=== PATIENT | female | born 1950 | race Hispanic/Latino ===

== ENCOUNTER → 2019-05-26 | Outpatient (CLI) | payer OTHER | END | disposition home or self-care (01) | LOC: RAH 12:36 | PROVIDERS: ATTEND Physical Medicine & Rehabilitation | DX: M47.26 Other spondylosis with radiculopathy, lumbar region (principal); M89.38 Hypertrophy of bone, other site; M25.78 Osteophyte, vertebrae | CPT/HCPCS: 72114 ==

== ENCOUNTER → 2019-06-18 | Outpatient (CLI) | payer OTHER | END | disposition home or self-care (01) | LOC: RAH 10:29 | PROVIDERS: ATTEND Physical Medicine & Rehabilitation | DX: M51.17 Intervertebral disc disorders with radiculopathy, lumbosacral region (principal); M48.061 Spinal stenosis, lumbar region without neurogenic claudication; M51.16 Intervertebral disc disorders with radiculopathy, lumbar region | CPT/HCPCS: 72148 ==

== ENCOUNTER → 2025-02-03 | Outpatient (CLI) | payer MEDICARE ==
--- NOTE | 2025-02-04 03:46 | HMCIMG ---
EXAM: CR Lumbar Spine, 4 views. CLINICAL HISTORY: Pain. COMPARISON: None provided. FINDINGS: Lumbar alignment is within normal limits. No spondylolisthesis on flexion and extension. Mild osteopenia. Moderate spondylosis and mild degenerative disc space narrowing at multiple levels. Normal vertebral body heights. No acute fracture. Atherosclerotic vascular calcifications. IMPRESSION: Lumbar alignment is within normal limits. No spondylolisthesis on flexion and extension. Mild osteopenia. Moderate spondylosis and mild degenerative disc space narrowing at multiple levels. /[place]
== END | disposition home or self-care (01) ==
LOC: RAH 10:26
PROVIDERS: ATTEND Physician Assistant
DX: M47.26 Other spondylosis with radiculopathy, lumbar region (principal); M48.061 Spinal stenosis, lumbar region without neurogenic claudication; M54.51 Vertebrogenic low back pain; M85.88 Other specified disorders of bone density and structure, other site; M99.05 Segmental and somatic dysfunction of pelvic region; I70.90 Unspecified atherosclerosis
CPT/HCPCS: 72114

== ENCOUNTER → 2025-04-15 | Outpatient (CLI) | payer MEDICARE ==
--- NOTE | 2025-04-16 22:37 | HMCIMG ---
EXAM: MR Lumbar Spine Without Intravenous Contrast. CLINICAL HISTORY: Radiculopathy. TECHNIQUE: Magnetic resonance images of the lumbar spine in multiple planes. CONTRAST: None. COMPARISON: MRI dated 06/18/19. FINDINGS: For this examination, spinal levels were labeled assuming five [id number], lumbar-type vertebrae, with the inferior labeled L5. No acute fracture. Normal lordotic curvature. Multilevel spondylosis is evident by marginal osteophytes and facet joint arthropathy. Multilevel disc desiccation noted. Mild degenerative disc height reduction at the L5-S1 level. Normal vertebral body and remaining disc heights. Modic type I changes in the contiguous endplates at the L5-S1 level. Conus medullaris terminates at the L1 level. No abnormal epidural masses. The surrounding soft tissues are unremarkable. Individual spinal levels are described as follows: T12-L1: No disc bulge or herniation. No neural foraminal, lateral recess, or spinal canal stenosis. L1-L2: No disc bulge or herniation. No neural foraminal, lateral recess, or spinal canal stenosis. L2-L3: 2 mm disc osteophyte complex bulge causing mild indentation on the anterior thecal sac. No neural foraminal or lateral recess stenosis. L3-L4: 3 mm disc osteophyte complex bulge causing mild indentation on the anterior thecal sac. No neural foraminal or lateral recess stenosis. L4-L5: 6 mm diffuse disc bulge, ligamentum flavum thickening, and facet joint arthropathy causing [id number] canal narrowing with clumping of the cauda equina and mild bilateral foraminal narrowing. No lateral recess stenosis. L5-S1: 6 mm right predominant diffuse disc bulge and facet joint arthropathy causing mild indentation on the anterior thecal sac, severe right lateral recess narrowing with compression of the traversing right S1 nerve root, and mild bilateral foraminal narrowing. IMPRESSION: Mild multilevel spondylosis. Mild degenerative disc height reduction at the L5-S1 level. Mild interval worsening. Modic type I changes in the contiguous endplates at the L5-S1 level. Stable. Mild indentation on the anterior thecal sac at the L2-L3 and L3-L4 levels. New finding. [id number] canal narrowing with clumping of the cauda equina and mild bilateral foraminal narrowing at the L4-L5 level. Interval worsening of the canal narrowing with new clumping of the cauda equina. Mild indentation on the anterior thecal sac, severe right lateral recess narrowing with compression of the traversing right S1 nerve root, and mild bilateral foraminal narrowing at the L5-S1 level. Mild interval worsening of the right lateral recess narrowing. /[place]
== END | disposition home or self-care (01) ==
LOC: RAH 13:00
PROVIDERS: ATTEND Physical Medicine & Rehabilitation
DX: M47.817 Spondylosis without myelopathy or radiculopathy, lumbosacral region (principal); M51.379 Other intervertebral disc degeneration, lumbosacral region without mention of lumbar back pain or lower extremity pain; M48.07 Spinal stenosis, lumbosacral region; M51.370 Other intervertebral disc degeneration, lumbosacral region with discogenic back pain only; M25.78 Osteophyte, vertebrae; M54.16 Radiculopathy, lumbar region
CPT/HCPCS: 72148